=== PATIENT | male | born 1995 | race Caucasian/White ===

== ENCOUNTER 2017-09-20 22:47 | Emergency (ER) | payer OTHER ==
[2017-09-21] MEDS ORDERED: METHYLPREDNISOLONE SOD SUCC/PF 125 MG/2 ML VIAL IV ONE (00:53)
[2017-09-21] MEDS ORDERED: diphenhydrAMINE HCL 50 MG/ML VIAL IV ONE (00:53)
[2017-09-21] MEDS ORDERED: NORMAL SALINE 1,000 ML IV ONE (00:54)
[2017-09-21] MEDS ORDERED: FAMOTIDINE 10 MG/ML VIAL IV ONE ×2 (00:54→01:12)
--- NOTE | 2017-09-21 00:55 | ERNOTE ---
Integumentary HPI - General Presenting Symptoms: rash Time Seen by Provider: 09/21/17 00:03 Source: patient Exam Limitations: no limitations - Immun/Allergies/Home Medications Immunizations: IMMUNIZATION HX Immunizations Up to Date Yes History of Influenza Vaccine No Home Medications: HOME MEDICATIONS Methylprednisolone [Medrol Dosepak] 4 mg PO DAILY #21 tab.ds.pk 09/21/17 [Last Taken Unknown] - Pain Pain Score: 5 - History of Present Illness Narrative: Pt had rash begin on his right arm this evening and has spread Location: Reports: generalized Quality: Reports: itching Severity: moderate Exposure: Reports: no cause identified Modifying Factors - (Improves): Reports: nothing Associated Symptoms: Reports: denies symptoms Review of Systems - Review of Systems Constitutional: Present: no symptoms reported EYE: Present: no symptoms reported ENT: Present: no symptoms reported Respiratory: Absent: shortness of breath Cardiology: Absent: chest pain Gastrointestinal/Abdominal: Absent: nausea Genitourinary: Present: no symptoms reported Musculoskeletal: Present: no symptoms reported Skin: Present: See HPI Neurological: Present: no symptoms reported Endocrine: Present: no symptoms reported Hematologic/Lymphatic: Absent: easy bruising Psych: Present: no symptoms reported - Patient's Past Medical History Patient History - Medical: No pertinent hx Patient History - Cardiac/Respiratory: No pertinent hx Patient History - Cancer: No Hx of Cancer Patient History - Surgical Procedures: No surgical history Patient History - Other: None - Social History Living Situations: home Psych History: No pertinent hx Smoking Status: Never smoker Alcohol Use: none Drug Use: none - Immunizations Immunizations Up to Date: Yes History of Influenza Vaccine: No Physical Exam - Physical Exam General Appearance: Present: wd/wn, alert, no apparent distress Ears, Nose, Throat: Present: normal ENT inspection Neck: Present: normal inspection Respiratory: Present: no respiratory distress, no accessory muscle use, lungs clear Cardiovascular/Chest: Present: regular rate, rhythm Extremity Exam: Present: normal inspection, normal range of motion, no edema Neurological Exam: Present: alert, oriented, normal mood/affect, no motor/ sensory deficits Skin Exam: Present: skin rash - small papules over background erythema on arms trunk and legs ED Progress - Vital Signs Vital Signs: Vital Signs 09/20/17 22:56 Temperature 36.2 C L Pulse Rate 85 Respiratory 18 Rate Blood Pressure 129/87 O2 Sat by Pulse 99 Oximetry - Progress/Reassessment Chief Complaint: Rash Progress:: Repeat exam at discharge Progress Note-Subjective: 09/21/17 02:23 Rash resolved Departure Clinical Impression: Dermatitis, unspecified - Departure Disposition: Home self-care Condition: Good Instructions: Contact Dermatitis, [id number] Additional Instructions: Take prescription medication as directed. You may also use benadryl or danilo as needed for itching. Return to the ER if you have any shortness of breath or tightness in your throat. See your regular doctor if you continue to have rash. Prescriptions: Methylprednisolone [Medrol Dosepak] 4 mg PO DAILY #21 tab.ds.pk
[2017-09-21] MEDS ORDERED: diphenhydrAMINE HCL 50 MG/ML VIAL ONE (01:11)
[2017-09-21] MEDS ORDERED: METHYLPREDNISOLONE SOD SUCC/PF 125 MG/2 ML VIAL ONE (01:11)
[2017-09-21 01:24] VITALS: BP 136/87
== END 2017-09-21 02:24 | disposition home or self-care (01) ==
LOC: ER 22:47
DX: L30.9 Dermatitis, unspecified (principal)